=== PATIENT | female | born 1985 | race Caucasian/White ===

== ENCOUNTER 2022-02-04 10:20 | Inpatient (IN) ==
[2022-02-04] MEDS ORDERED: OXYTOCIN 30 UNITS/500 ML BAG IV PRN ×2 (12:04→12:06)
--- NOTE | 2022-02-04 12:10 | History & Physical Report ---
Date of Service February 04, 2022 Assessment & Plan (1) 39 weeks gestation of : Plan: Admit, routine labs, start oxytocin for augmentation Epidural if patient requests Anticipate spontaneous vaginal delivery (2) Rupture of membranes with clear amniotic fluid: Plan: Prelabor rupture of membranes, will start oxytocin for augmentation (3) Macrosomia affecting management of mother in third trimester: Plan: Discussed [facility] results with patient yesterday, [facility]. Again patient was counseled with at the bedside about estimated weight of [id number] g which falls into the category of 5000 g and can offer section. However discussed with patient that her ultrasound is not always accurate, and it may be reasonable to also offer vaginal delivery, as patient desires a vaginal delivery if possible. There is increased risk with maternal and morbidity for macrosomia including infection, hemorrhage, injury and possible if the shoulder dystocia occurs. It is very hard to predict her shoulder dystocia but literature suggests infants that way over 5 kg have a 15% risk of a shoulder dystocia with the remaining deliveries being successful. Even with a delivery not all injuries are avoided. However in cases of macrosomia prolonged first and second stage of labor is more likely to occur, and if this happens patient is agreeable to proceed with a delivery. Would avoid a operative vaginal delivery for increased risk of shoulder dystocia. Counseling was performed with the patient and her significant other and they desire to proceed with attempted vaginal delivery at this time including the benefits, risks and alternatives We will proceed with augmentation of labor at this time. Per ACOG CO #216 The following recommendations are based on good and consistent scientific evid ence (Level A): * The prediction of weight is imprecise by ultrasonography or clinical measurement. For suspected macrosomia, the accuracy of estimated weight using ultrasound biometry is no better than that obtained with abdominal palpation. The following recommendations are based primarily on consensus and expert opinion (Level C): * Although the prediction of macrosomia is imprecise, scheduled may be beneficial for newborns with suspected macrosomia who have an estimated weight of at least 5,000 g in women without diabetes and an estimated weight of at least 4,500 g in women with diabetes. (4) Hypothyroidism: Plan: Continue Synthroid as prescribed (5) AMA (advanced maternal age) multigravida 35+: History of Present Illness Chief Complaint: Loss of fluid, ROM positive in clinic Primary Care Provider: NO PCP Patient is a 36-year-old -0-2-1 at 39 weeks and 2 days who presents from clinic for leaking of fluid approximately at 7:30 PM last night, and was found to be ROM positive in clinic. She has irregular contractions, denies any vaginal bleeding. Notes good movement. Denies any headache, blurry vision, right upper quadrant or epigastric pain. Otherwise feeling well. Issues this include hypothyroidism in which she is taking 100 mcg of Synthroid daily, advanced maternal age and suspected macrosomia. US 02/03/2022: FINDINGS General : Paulino Presentation: Vertex heart rate: 124 bpm Amniotic Fluid: Normal MORALES: 17.8 cm which is between the 50th and 95th percentiles for this stage of . Placenta: Anterior, no previa Biometry The previous outside study estimated the date of delivery of 02/09/2022. Uti lizing that date, current gestational age is 39 weeks 1 days. Biparietal diameter: 9.6 cm, 39w 1d Head circumference: 35.7 cm, which is out range Abdominal circumference: 38.1 cm, 42w 0d Femur length: 8.0 cm, 41w 1d Humeral length: 7.2 cm, which is out of range HC/AC: 0.94, within normal limits EFW: 4376 g +/- 639 g which is at the 98th percentile. Allergies Allergy/AdvReac Type Severity Reaction Status Date / Time No Known Drug Allergies Allergy Verified 01/29/22 09:43 Home Medications Medication Instructions Recorded Confirmed Type cetirizine 10 mg tablet 10 mg PO HS 01/29/22 02/04/22 History cholecalciferol (vitamin D3) 50 100 mcg PO QAM 01/29/22 02/04/22 History mcg (2,000 unit) tablet (Vitamin D3) levothyroxine 100 mcg tablet 100 mcg PO QAM 01/29/22 02/04/22 History vitamins no.144-folic 4 tab PO QAM 01/29/22 02/04/22 History acid 400 mcg chewable tablet () Patient History Medical History Cardiac murmur 2010, f/u with provider in [place], "no concerns right now" History of COVID-19 12/29/21, home test, sore throat, congestion, headache, fatigue, not hospitalized>resolved. Hypothyroidism Pt stated "she is sensitive to certain types of Synthroid, has been only taking the specific type in her current med list" Surgical History Hx of wisdom tooth extraction Family History Grandmother (Paternal) Diabetes Mother Hypothyroidism Social History Smoking Status: Never smoker Second Hand Exposure: No; Hx Alcohol Use: No Hx Substance Use: No Preferred Language: Portuguese Communication Ability: Effective Cytotechnologist Required: No Beliefs That Will Affect Care: None marital status: Current Living Situation: Spouse and Family Current Living Situation Comment: Daughter and . 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 Review of Systems All systems reviewed & are unremarkable except as noted in HPI & below Physical Exam Constitutional: WD/WN, vitals as above Respiratory: normal respiratory effort, lungs clear to auscultation Cardiovascular: RRR, no murmur, no edema Gastrointestinal (Abdomen): normal bowel sounds, soft, nontender, no hepatosplenomegaly Genitourinary: no vaginal lesions, no adnexal mass Neymar: Vertex, EFW 4500 g Sterile speculum exam: Negative Valsalva, negative pooling, AmniSure obtained which was positive Cervix: 1.5/50/-3 soft in the anterior, sutures felt Results & Data ([facility]) Vital Signs (Past 12 Hours) Vital Signs Pulse BP 02/04/22 11:12 85 118/64 Monitoring External Monitor heart tracing: Baseline 1 30-1 35, moderate variability, positive accelerations, variable decelerations Tocodynamometer Tocometer: Irregular contractions
[2022-02-04 12:42] LABS: Hematocrit (blood only) 36.4 % (34.1-44.9); Hemoglobin 12.3 g/dl (12.0-16.0); Mean Corpuscular Hemoglobin 30.5 pg (25.0-34.0); Mean Corpuscular Hgb Conc 33.8 g/dL (32.0-36.0); Mean Corpuscular Volume 90.3 fL (80.0-100.0); Mean Platelet Volume 9.7 fL (9.4-12.3); Platelet Count 241 K/uL (130-400); RDW Coefficient of Variation 13.6 % (11.5-14.5); RDW Standard Deviation 44.8 fL (36.4-46.3); Red Blood Count 4.03 M/uL (3.93-5.22); White Blood Count 10.15 K/ul (4.8-10.8)
[2022-02-04] MEDS: LACTATED RINGER'S 1,000 ML IV PRN ×3 (12:48→21:20)
--- NOTE | 2022-02-04 16:55 | Labor Progress Brief Note ---
Date of Service February 04, 2022 Subjective Called by nursing staff as they felt that bulging bag may be present and unable to feel the cervix Patient is uncomfortable with contractions and is tearful No other complaints at this time Assessment & Plan (1) 39 weeks gestation of : Plan: Continue oxytocin for augmentation Epidural if patient requests Anticipate spontaneous vaginal delivery (2) Rupture of membranes with clear amniotic fluid: Plan: Prelabor rupture of membranes, will start oxytocin for augmentation (3) Macrosomia affecting management of mother in third trimester: Plan: Discussed ultrasound results with patient yesterday, [facility] for [facility]. Again patient was counseled with at the bedside about estimated weight of [id number] g which falls into the category of 5000 g and can offer section. However discussed with patient that her ultrasound is not always accurate, and it may be reasonable to also offer vaginal delivery, as patient desires a vaginal delivery if possible. There is increased risk with maternal and morbidity for macrosomia including infection, hemorrhage, injury and possible if the shoulder dystocia occurs. It is very hard to predict her shoulder dystocia but literature suggests infants that way over 5 kg have a 15% risk of a shoulder dystocia with the remaining deliveries being successful. Even with a delivery not all injuries are avoided. However in cases of macrosomia prolonged first and second stage of labor is more likely to occur, and if this happens patient is agreeable to proceed with a delivery. Would avoid a operative vaginal delivery for increased risk of shoulder dystocia. Counseling was performed with the patient and her significant other and they desire to proceed with attempted vaginal delivery at this time including the benefits, risks and alternatives We will proceed with augmentation of labor at this time. Per ACOG CO #216 The following recommendations are based on good and consistent scientific evidence (Level A): * The prediction of weight is imprecise by ultrasonography or clinical measurement. For suspected macrosomia, the accuracy of estimated weight using ultrasound biometry is no better than that obtained with abdominal palpation. The following recommendations are based primarily on consensus and expert opinion (Level C): * Although the prediction of macrosomia is imprecise, scheduled may be beneficial for newborns with suspected macrosomia who have an estimated weight of at least 5,000 g in women without diabetes and an estimated weight of at least 4,500 g in women with diabetes. (4) Hypothyroidism: Plan: Continue Synthroid as prescribed (5) AMA (advanced maternal age) multigravida 35+: Admission and Anticipated Discharge Date Admission Date: February 04, 2022 Physical Exam Genitourinary: Heart tracing: Baseline 130, moderate variability, severe accelerations, variable decelerations Number: Contractions every 2 to 3 minutes, oxytocin currently running Cervix: 2/50/-3 Results & Data ([facility]) Vital Signs (Past 12 Hours) Vital Signs Temp Pulse Resp BP 02/04/22 16:00 78 119/67 02/04/22 15:11 76 108/67 02/04/22 15:09 76 88/54 L 02/04/22 15:08 76 86/52 L 02/04/22 15:07 76 87/52 L 02/04/22 15:06 36.7 C 18 02/04/22 14:20 109 H 20 117/87 02/04/22 12:57 36.7 C 83 18 114/67 02/04/22 11:12 85 118/64 02/04/22 11:11 36.6 C 18
[2022-02-04] MEDS ORDERED: ePHEDrine sulfate 50 MG/ML AMP ONE (17:02)
[2022-02-04] MEDS ORDERED: fentaNYL 2MCG/ML ROPIVACAINE 1.25MG/ML 100 ML BAG EPI ONE (17:03)
[2022-02-04] MEDS ORDERED: fentaNYL citrate 100 MCG/2 ML VIAL ONE (17:03)
[2022-02-04] MEDS ORDERED: SODIUM CHLORIDE 0.9% INJ 10 ML VIAL ONE (17:03)
[2022-02-04] MEDS ORDERED: BUPIVACAINE 0.25% 30 ML VIAL ONE (17:03)
[2022-02-04] MEDS ORDERED: LIDOCAINE 2%/EPINEPHRINE 1:200,000 20 ML SDV ONE (17:03)
[2022-02-04] MEDS ORDERED: diphenhydrAMINE 50 MG/ML VIAL IV PRN (17:09)
[2022-02-04] MEDS ORDERED: NALBUPHINE HCL INJ 10 MG/ML AMP IV PRN (17:09)
[2022-02-04] MEDS ORDERED: fentaNYL 2MCG/ML ROPIVACAINE 1.25MG/ML 100 ML BAG EPI PRN (17:09)
[2022-02-04] MEDS ORDERED: NALOXONE HCL 1 MG in SODIUM CHLORIDE 0.9% 1000ML 1,000 ML IV PRN (17:09)
[2022-02-04] MEDS ORDERED: NALOXONE HCL 0.4 MG/1 ML VIAL/CARP IV PRN (17:09)
[2022-02-04] MEDS ORDERED: ePHEDrine sulfate 50 MG/ML AMP IV PRN (17:09)
[2022-02-04] MEDS ORDERED: ONDANSETRON INJ 2 MG/ML 2 ML VIAL IV PRN (17:09)
--- NOTE | 2022-02-04 17:09 | Anesthesiology Consultation ---
Date of Service February 04, 2022 Assessment & Plan ASA ASA2 Proposed Anesthesia Anesthesia Type: CSE Risk / Benefits Reviewed With: PT / POA / Parent / Guardian, Accepts Plan and Informed Consent Obtained History Height/Weight Height: 5 ft 5 in Weight: 78.471 kg Allergies Allergy/AdvReac Type Severity Reaction Status Date / Time No Known Drug Allergies Allergy Verified 01/29/22 09:43 Medications Home Medications Medication Instructions Recorded Confirmed Last Taken cetirizine 10 mg tablet 10 mg PO HS 01/29/22 02/04/22 02/02/22 22:00 cholecalciferol (vitamin D3) 50 100 mcg PO QAM 01/29/22 02/04/22 02/03/22 18:30 mcg (2,000 unit) tablet (Vitamin D3) levothyroxine 100 mcg tablet 100 mcg PO QAM 01/29/22 02/04/22 02/04/22 06:15 vitamins no.144-folic 4 tab PO QAM 01/29/22 02/04/22 02/03/22 18:30 acid 400 mcg chewable tablet () Active Medications Generic Name Dose Route Start Last Admin Trade Name Freq PRN Reason Stop Dose Admin Lactated Ringer's 1,000 mls @ 125 mls/hr 02/04/22 12:04 02/04/22 17:52 Lr IV 02/06/22 12:03 125 mls/hr .Q8H PRN Infusion L&D Protocol Protocol Oxytocin 30 units in 500 mls @ 8 mls/hr 02/04/22 12:06 02/04/22 16:35 Pitocin IV 02/06/22 12:05 0.48 units/hr .Q24H PRN 8 mls/hr Labor Induction/Augmentation Titration Protocol 0.48 UNITS/HR Past Medical History Medical History Cardiac murmur 2009, f/u with provider in [place], "no concerns right now" History of COVID-19 12/29/21, home test, sore throat, congestion, headache, fatigue, not hospitalized>resolved. Hypothyroidism Pt stated "she is sensitive to certain types of Synthroid, has been only taking the specific type in her current med list" Exercise / Class Metabolic Activity II 4-5 Yardwork/Stairs/Walk up hill Past Family History Family History Grandmother (Paternal) Diabetes Mother Hypothyroidism Past Surgical History Surgical History Hx of wisdom tooth extraction Past Anesthesia History No Hx of Anesthesia Complications and No Family Hx of Anesthesia Complications History of PONV No Hx of PONV and No Hx of Motion Sickness Social History Smoking Status: Never smoker Hx Alcohol Use: No Alcohol type: beer alcohol intake frequency: holidays/special occasions only Hx Substance Use: No substance use type: does not use Review of Systems denies fever/cough/ colds/ chest pain/ SOB/ ASLMA denies SALMA Physical Exam Vital Signs Last Vital Signs Temp 36.7 C 02/04/22 15:06 Pulse 67 02/04/22 17:56 Resp 18 02/04/22 15:06 BP 109/69 02/04/22 17:56 Pulse Ox 96 02/04/22 17:56 ENMT Mouth: no TMJ abnormality and no dentition abnormality Thyromental Distance: > or= 3.5 Finger Breadths Mallampati Class: II Neck neck extension not limited Respiratory normal respiratory effort; no respiratory distress Auscultation: lungs clear to auscultation bilaterally Cardiovascular Rate/Rhythm: regular rate and regular rhythm Neurologic moves all extremities Psychiatric Orientation: alert and oriented x 3 Testing Laboratory Results 02/04/22 12:18 Blood Type O Positive 02/04/22 12:18 Antibody Screen NEGATIVE 02/04/22 12:18
--- NOTE | 2022-02-04 18:48 | Labor Progress Brief Note ---
Date of Service February 04, 2022 Subjective Patient comfortable on epidural at this time, no other complaint Assessment & Plan (1) 39 weeks gestation of : Plan: Continue oxytocin for augmentation Anticipate spontaneous vaginal delivery (2) Rupture of membranes with clear amniotic fluid: Plan: Prelabor rupture of membranes, will start oxytocin for augmentation (3) Macrosomia affecting management of mother in third trimester: Plan: Discussed [facility] results with patient yesterday, [facility]. Again patient was counseled with at the bedside about estimated weight of [id number] g which falls into the category of 5000 g and can offer section. However discussed with patient that her ultrasound is not always accurate, and it may be reasonable to also offer vaginal delivery, as patient desires a vaginal delivery if possible. There is increased risk with maternal and morbidity for macrosomia including infection, hemorrhage, injury and possible if the shoulder dystocia occurs. It is very hard to predict her shoulder dystocia but literature suggests infants that way over 5 kg have a 15% risk of a shoulder dystocia with the remaining deliveries being successful. Even with a delivery not all injuries are avoided. However in cases of macrosomia prolonged first and second stage of labor is more likely to occur, and if this happens patient is agreeable to proceed with a delivery. Would avoid a operative vaginal delivery for increased risk of shoulder dystocia. Counseling was performed with the patient and her significant other and they desire to proceed with attempted vaginal delivery at this time including the benefits, risks and alternatives We will proceed with augmentation of labor at this time. Per ACOG CO #216 The following recommendations are based on good and consistent scientific evidence (Level A): * The prediction of weight is imprecise by ultrasonography or clinical measurement. For suspected macrosomia, the accuracy of estimated weight using ultrasound biometry is no better than that obtained with abdominal palpation. The following recommendations are based primarily on consensus and expert opinion (Level C): * Although the prediction of macrosomia is imprecise, scheduled may be beneficial for newborns with suspected macrosomia who have an estimated weight of at least 5,000 g in women without diabetes and an estimated weight of at least 4,500 g in women with diabetes. (4) Hypothyroidism: Plan: Continue Synthroid as prescribed (5) AMA (advanced maternal age) multigravida 35+: Admission and Anticipated Discharge Date Admission Date: February 04, 2022 Physical Exam Physical Exam: heart tracing: Baseline 120, moderate variability, positive accelerations, no decelerations, category 1 tracing Tocometer: Contractions every 2 minutes Pitocin currently running Cervix: 3/60/-2, bulging bag, AROM performed with clear fluid, IUPC was placed for adequate augmentation of Pitocin. No cord felt. No complications Results & Data ([facility]) Vital Signs (Past 12 Hours) Vital Signs Temp Pulse Resp BP Pulse Ox 02/04/22 18:41 86 108/64 97 02/04/22 18:36 67 97 02/04/22 18:31 88 97 02/04/22 18:26 72 97 02/04/22 18:23 75 100/67 02/04/22 18:21 71 98 02/04/22 18:17 82 104/68 02/04/22 18:16 73 95 02/04/22 18:12 74 111/67 02/04/22 18:11 61 97 02/04/22 18:09 63 112/69 02/04/22 18:06 64 97 02/04/22 18:03 70 112/63 02/04/22 18:01 36.7 C 67 18 98 02/04/22 17:59 65 94 02/04/22 17:56 67 109/69 96 02/04/22 17:54 58 L 108/68 02/04/22 17:52 63 111/75 02/04/22 17:51 72 95 02/04/22 17:50 65 112/73 02/04/22 17:48 78 109/74 02/04/22 17:46 74 99 02/04/22 17:41 73 99 02/04/22 17:36 80 97 02/04/22 17:31 69 100 02/04/22 17:30 64 112/74 02/04/22 16:00 78 119/67 02/04/22 15:11 76 108/67 02/04/22 15:09 76 88/54 L 02/04/22 15:08 76 86/52 L 02/04/22 15:07 76 87/52 L 02/04/22 15:06 36.7 C 18 02/04/22 14:20 109 H 20 117/87 02/04/22 12:57 36.7 C 83 18 114/67 02/04/22 11:12 85 118/64 02/04/22 11:11 36.6 C 18
[2022-02-04] MEDS: CETIRIZINE HCL 10 MG TABLET PO SCH (21:20)
--- NOTE | 2022-02-04 21:47 | Labor Progress Brief Note ---
Date of Service February 04, 2022 Subjective Strip review Patient comfortable on epidural at this time, no other complaint per nursing Assessment & Plan (1) 39 weeks gestation of : Plan: Continue oxytocin for augmentation Anticipate spontaneous vaginal delivery (2) Rupture of membranes with clear amniotic fluid: Plan: Prelabor rupture of membranes, continue oxytocin for augmentation (3) Macrosomia affecting management of mother in third trimester: Plan: Discussed ultrasound results with patient yesterday, [facility]. Again patient was counseled with at the bedside about estimated weight of [id number] g which falls into the category of 5000 g and can offer section. However discussed with patient that her ultrasound is not always accurate, and it may be reasonable to also offer vaginal delivery, as patient desires a vaginal delivery if possible. There is increased risk with maternal and morbidity for macrosomia including infection, hemorrhage, injury and possible if the shoulder dystocia occurs. It is very hard to predict her shoulder dystocia but literature suggests infants that way over 5 kg have a 15% risk of a shoulder dystocia with the remaining deliveries being successful. Even with a delivery not all injuries are avoided. However in cases of macrosomia prolonged first and second stage of labor is more likely to occur, and if this happens patient is agreeable to proceed with a delivery. Would avoid a operative vaginal delivery for increased risk of shoulder dystocia. Counseling was performed with the patient and her significant other and they desire to proceed with attempted vaginal delivery at this time including the benefits, risks and alternatives We will proceed with augmentation of labor at this time. Per ACOG CO #216 The following recommendations are based on good and consistent scientific evidence (Level A): * The prediction of weight is imprecise by ultrasonography or clinical measurement. For suspected macrosomia, the accuracy of estimated weight using ultrasound biometry is no better than that obtained with abdominal palpation. The following recommendations are based primarily on consensus and expert opinion (Level C): * Although the prediction of macrosomia is imprecise, scheduled may be beneficial for newborns with suspected macrosomia who have an estimated weight of at least 5,000 g in women without diabetes and an estimated weight of at least 4,500 g in women with diabetes. (4) Hypothyroidism: Plan: Continue Synthroid as prescribed (5) AMA (advanced maternal age) multigravida 35+: Admission and Anticipated Discharge Date Admission Date: February 04, 2022 Physical Exam Physical Exam: heart tracing: Baseline 1 -1 30, moderate variability, variable decelerations, category 2 tracing Tocometer: Contractions every 3 minutes, oxytocin currently at 10 milliunits/h Cervix: 4/90/-2 checked by RN Results & Data ([facility]) Vital Signs (Past 12 Hours) Vital Signs Temp Pulse Resp BP Pulse Ox 02/04/22 21:42 64 109/66 02/04/22 21:41 63 96 02/04/22 21:36 73 96 02/04/22 21:35 84 94 02/04/22 21:31 72 97 02/04/22 21:28 36.8 C 18 02/04/22 21:27 69 107/58 L 02/04/22 21:26 68 97 02/04/22 21:21 69 98 02/04/22 21:16 77 96 02/04/22 21:11 67 94/50 L 96 02/04/22 21:10 70 94 02/04/22 21:06 68 95 02/04/22 21:04 70 94 02/04/22 21:01 65 95 02/04/22 20:58 70 94 02/04/22 20:56 75 92/51 L 96 02/04/22 20:51 67 96 02/04/22 20:50 64 94 02/04/22 20:46 60 95 02/04/22 20:43 60 94 02/04/22 20:42 61 93/51 L 02/04/22 20:41 65 95 02/04/22 20:36 59 L 93 02/04/22 20:34 63 94 02/04/22 20:31 63 94 02/04/22 20:26 69 102/54 L 94 02/04/22 20:21 65 95 02/04/22 20:16 63 95 02/04/22 20:15 64 93 02/04/22 20:11 62 96/54 L 97 02/04/22 20:10 66 94 02/04/22 20:06 64 93 02/04/22 20:01 62 94 02/04/22 19:56 62 98/52 L 94 02/04/22 19:55 66 94 02/04/22 19:51 75 97 02/04/22 19:46 69 95 02/04/22 19:41 70 93/54 L 95 02/04/22 19:38 64 93 02/04/22 19:36 65 96 02/04/22 19:31 62 95 02/04/22 19:26 67 106/61 96 02/04/22 19:23 65 94 02/04/22 19:21 92 H 96 02/04/22 19:16 67 97 02/04/22 19:14 64 94 02/04/22 19:12 59 L 107/62 02/04/22 19:11 70 97 02/04/22 19:07 67 93 02/04/22 19:06 64 95 02/04/22 19:01 66 97 02/04/22 19:00 36.7 C 18 02/04/22 18:56 74 101/58 L 95 02/04/22 18:54 65 94 02/04/22 18:51 81 97 02/04/22 18:46 75 96 02/04/22 18:41 86 108/64 97 02/04/22 18:36 67 97 02/04/22 18:31 88 97 02/04/22 18:26 72 97 02/04/22 18:23 75 100/67 02/04/22 18:21 71 98 02/04/22 18:17 82 104/68 02/04/22 18:16 73 95 02/04/22 18:12 74 111/67 02/04/22 18:11 61 97 02/04/22 18:09 63 112/69 02/04/22 18:06 64 97 02/04/22 18:03 70 112/63 02/04/22 18:01 36.7 C 67 18 98 02/04/22 17:59 65 94 02/04/22 17:56 67 109/69 96 02/04/22 17:54 58 L 108/68 02/04/22 17:52 63 111/75 02/04/22 17:51 72 95 02/04/22 17:50 65 112/73 02/04/22 17:48 78 109/74 02/04/22 17:46 74 99 02/04/22 17:41 73 99 02/04/22 17:36 80 97 02/04/22 17:31 69 100 02/04/22 17:30 64 112/74 02/04/22 16:00 78 119/67 02/04/22 15:11 76 108/67 02/04/22 15:09 76 88/54 L 02/04/22 15:08 76 86/52 L 02/04/22 15:07 76 87/52 L 02/04/22 15:06 36.7 C 18 02/04/22 14:20 109 H 20 117/87 02/04/22 12:57 36.7 C 83 18 114/67 02/04/22 11:12 85 118/64 02/04/22 11:11 36.6 C 18
--- NOTE | 2022-02-05 00:40 | Labor Progress Brief Note ---
Date of Service February 05, 2022 Subjective Patient comfortable with epidural at this time, pushing with nursing Assessment & Plan (1) 39 weeks gestation of : Plan: Continue oxytocin for augmentation I continued to push with patient, but she made little progress with bringing the head under the pubic symphysis, will allow patient to keep pushing with nursing staff at this time Anticipate spontaneous vaginal delivery, however if patient meets criteria for arrest of active labor we will proceed with section (2) Rupture of membranes with clear amniotic fluid: Plan: Prelabor rupture of membranes, continue oxytocin for augmentation (3) Macrosomia affecting management of mother in third trimester: Plan: Discussed ultrasound results with patient yesterday, [facility] session. Again patient was counseled with at the bedside about estimated weight of [id number] g which falls into the category of 5000 g and can offer section. However discussed with patient that her ultrasound is not always accurate, and it may be reasonable to also offer vaginal delivery, as patient desires a vaginal delivery if possible. There is increased risk with maternal and morbidity for macrosomia including infection, hemorrhage, injury and possible if the shoulder dystocia occurs. It is very hard to predict her shoulder dystocia but literature suggests infants that way over 5 kg have a 15% risk of a shoulder dystocia with the remaining deliveries being successful. Even with a delivery not all injuries are avoided. However in cases of macrosomia prolonged first and second stage of labor is more likely to occur, and if this happens patient is agreeable to proceed with a delivery. Would avoid a operative vaginal delivery for increased risk of shoulder dystocia. Counseling was performed with the patient and her significant other and they desire to proceed with attempted vaginal delivery at this time including the benefits, risks and alternatives We will proceed with augmentation of labor at this time. Per ACOG CO #216 The following recommendations are based on good and consistent scientific evidence (Level A): * The prediction of weight is imprecise by ultrasonography or clinical measurement. For suspected macrosomia, the accuracy of estimated weight using ultrasound biometry is no better than that obtained with abdominal palpation. The following recommendations are based primarily on consensus and expert opinion (Level C): * Although the prediction of macrosomia is imprecise, scheduled may be beneficial for newborns with suspected macrosomia who have an estimated weight of at least 5,000 g in women without diabetes and an estimated f etal weight of at least 4,500 g in women with diabetes. (4) Hypothyroidism: Plan: Continue Synthroid as prescribed (5) AMA (advanced maternal age) multigravida 35+: Admission and Anticipated Discharge Date Admission Date: February 04, 2022 Physical Exam Physical Exam: heart tracing: Baseline 1 10-1 15, minimal to moderate variability at times, no accelerations, early decelerations, category 2 tracing Tocometer: Contractions every 2 minutes, oxytocin at 10 milliunits/h Cervix: 10/100 0, with patient pushing she pushes to +1, OP position Results & Data ([facility]) Vital Signs (Past 12 Hours) Vital Signs Temp Pulse Resp BP Pulse Ox 02/05/22 00:33 86 94 02/05/22 00:32 82 94 02/05/22 00:27 89 118/58 L 96 02/05/22 00:26 86 92 02/05/22 00:22 96 H 97 02/05/22 00:19 95 H 90 02/05/22 00:16 108 H 98 02/05/22 00:11 88 93 02/05/22 00:06 98 H 97 02/05/22 00:01 93 H 98 02/05/22 00:00 36.8 C 20 02/04/22 23:57 85 93 02/04/22 23:56 91 H 113/63 97 02/04/22 23:51 86 98 02/04/22 23:46 81 98 02/04/22 23:42 85 114/59 L 02/04/22 23:41 83 98 02/04/22 23:36 83 98 02/04/22 23:35 90 93 02/04/22 23:31 80 98 02/04/22 23:29 84 94 02/04/22 23:27 80 116/67 02/04/22 23:26 81 95 02/04/22 23:23 89 91 02/04/22 23:21 78 98 02/04/22 23:17 90 94 02/04/22 23:16 94 H 94 02/04/22 23:12 85 116/69 02/04/22 23:11 82 99 02/04/22 23:07 84 93 07/06/22 23:06 85 96 02/04/22 23:01 85 97 02/04/22 22:56 75 97 02/04/22 22:51 80 97 02/04/22 22:46 82 98 02/04/22 22:43 71 94 02/04/22 22:41 77 103/68 97 02/04/22 22:36 84 93 02/04/22 22:31 72 97 02/04/22 22:26 78 108/70 98 02/04/22 22:25 78 93 02/04/22 22:21 75 99 02/04/22 22:18 84 93 02/04/22 22:16 73 99 02/04/22 22:12 76 94 02/04/22 22:11 79 103/64 96 02/04/22 22:06 86 96 02/04/22 22:01 76 97 02/04/22 21:57 66 107/62 02/04/22 21:56 70 98 02/04/22 21:51 64 97 02/04/22 21:46 68 96 02/04/22 21:42 64 109/66 02/04/22 21:41 63 96 02/04/22 21:36 73 96 02/04/22 21:35 84 94 02/04/22 21:31 72 97 02/04/22 21:28 36.8 C 18 02/04/22 21:27 69 107/58 L 02/04/22 21:26 68 97 02/04/22 21:21 69 98 02/04/22 21:16 77 96 02/04/22 21:11 67 94/50 L 96 02/04/22 21:10 70 94 02/04/22 21:06 68 95 02/04/22 21:04 70 94 02/04/22 21:01 65 95 02/04/22 20:58 70 94 02/04/22 20:56 75 92/51 L 96 02/04/22 20:51 67 96 02/04/22 20:50 64 94 02/04/22 20:46 60 95 02/04/22 20:43 60 94 02/04/22 20:42 61 93/51 L 02/04/22 20:41 65 95 02/04/22 20:36 59 L 93 02/04/22 20:34 63 94 02/04/22 20:31 63 94 02/04/22 20:26 69 102/54 L 94 02/04/22 20:21 65 95 02/04/22 20:16 63 95 02/04/22 20:15 64 93 02/04/22 20:11 62 96/54 L 97 02/04/22 20:10 66 94 02/04/22 20:06 64 93 02/04/22 20:01 62 94 02/04/22 19:56 62 98/52 L 94 02/04/22 19:55 66 94 02/04/22 19:51 75 97 02/04/22 19:46 69 95 02/04/22 19:41 70 93/54 L 95 02/04/22 19:38 64 93 02/04/22 19:36 65 96 02/04/22 19:31 62 95 02/04/22 19:26 67 106/61 96 02/04/22 19:23 65 94 02/04/22 19:21 92 H 96 02/04/22 19:16 67 97 02/04/22 19:14 64 94 02/04/22 19:12 59 L 107/62 02/04/22 19:11 70 97 02/04/22 19:07 67 93 02/04/22 19:06 64 95 02/04/22 19:01 66 97 02/04/22 19:00 36.7 C 18 02/04/22 18:56 74 101/58 L 95 02/04/22 18:54 65 94 02/04/22 18:51 81 97 02/04/22 18:46 75 96 02/04/22 18:41 86 108/64 97 02/04/22 18:36 67 97 02/04/22 18:31 88 97 02/04/22 18:26 72 97 02/04/22 18:23 75 100/67 02/04/22 18:21 71 98 02/04/22 18:17 82 104/68 02/04/22 18:16 73 95 02/04/22 18:12 74 111/67 02/04/22 18:11 61 97 02/04/22 18:09 63 112/69 02/04/22 18:06 64 97 02/04/22 18:03 70 112/63 02/04/22 18:01 36.7 C 67 18 98 02/04/22 17:59 65 94 02/04/22 17:56 67 109/69 96 02/04/22 17:54 58 L 108/68 02/04/22 17:52 63 111/75 02/04/22 17:51 72 95 02/04/22 17:50 65 112/73 02/04/22 17:48 78 109/74 02/04/22 17:46 74 99 02/04/22 17:41 73 99 02/04/22 17:36 80 97 02/04/22 17:31 69 100 02/04/22 17:30 64 112/74 02/04/22 16:00 78 119/67 02/04/22 15:11 76 108/67 02/04/22 15:09 76 88/54 L 02/04/22 15:08 76 86/52 L 02/04/22 15:07 76 87/52 L 02/04/22 15:06 36.7 C 18 02/04/22 14:20 109 H 20 117/87 02/04/22 12:57 36.7 C 83 18 114/67
[2022-02-05] MEDS ORDERED: ceFAZolin 2000MG 2,000 MG/15 ML SYR IV STA (02:41)
[2022-02-05] MEDS ORDERED: AZITHROMYCIN 500 MG in DEXTROSE 5% 250 ML IV STA (02:41)
--- NOTE | 2022-02-05 02:46 | Labor Progress Brief Note ---
Date of Service February 05, 2022 Subjective Patient comfortable with epidural at this time, been pushing for 2 1/2 hours. Assessment & Plan (1) 39 weeks gestation of : Plan: No change on exam after 2 1/2 hrs of pushing Desires to proceed with C section Patient counselled (see op report for counselling session) (2) Rupture of membranes with clear amniotic fluid: Plan: Prelabor rupture of membranes, (3) Macrosomia affecting management of mother in third trimester: Plan: D[facility]ed [facility] results with patient yesterday, [facility]. Again patient was counseled with at the bedside about estimated weight of [id number] g which falls into the category of 5000 g and can offer section. However discussed with patient that her ultrasound is not always accurate, and it may be reasonable to also offer vaginal delivery, as patient desires a vaginal delivery if possible. There is increased risk with maternal and morbidity for macrosomia including infection, hemorrhage, injury and possible if the shoulder dystocia occurs. It is very hard to predict her shoulder dystocia but literature suggests infants that way over 5 kg have a 15% risk of a shoulder dystocia with the remaining deliveries being successful. Even with a delivery not all injuries are avoided. However in cases of macrosomia prolonged first and second stage of labor is more likely to occur, and if this happens patient is agreeable to proceed with a delivery. Would avoid a operative vaginal delivery for increased risk of shoulder dystocia. Counseling was performed with the patient and her significant other and they desire to proceed with attempted vaginal delivery at this time including the benefits, risks and alternatives We will proceed with augmentation of labor at this time. Per ACOG CO #216 The following recommendations are based on good and consistent scientific evidence (Level A): * The prediction of weight is imprecise by ultrasonography or clinical measurement. For suspected macrosomia, the accuracy of estimated weight using ultrasound biometry is no better than that obtained with abdominal palpation. The following recommendations are based primarily on consensus and expert opinion (Level C): * Although the prediction of macrosomia is imprecise, scheduled may be beneficial for newborns with suspected macrosomia who have an estimated weight of at least 5,000 g in women without diabetes and an estimated weight of at least 4,500 g in women with diabetes. (4) Hypothyroidism: Plan: Continue Synthroid as prescribed (5) AMA (advanced maternal age) multigravida 35+: Admission and Anticipated Discharge Date Admission Date: February 04, 2022 Physical Exam Physical Exam: FHT: baseline 145, min-mod variability, no accels, late decelerations last several min Toxo: q3 min, pit now turned off Cx: 10/100/0 with caput to +2. no change to exam after 2 1/2 hrs of pushing Results & Data ([facility]) Vital Signs (Past 12 Hours) Vital Signs Temp Pulse Resp BP Pulse Ox 02/05/22 02:38 101 H 100 02/05/22 02:33 100 H 100 02/05/22 02:28 84 100 02/05/22 02:26 88 109/66 02/05/22 02:23 84 100 02/05/22 02:18 94 H 100 02/05/22 02:13 93 H 100 02/05/22 02:08 88 100 02/05/22 02:03 92 H 100 02/05/22 01:59 105 H 89 L 02/05/22 01:58 93 H 100 02/05/22 01:56 89 117/66 02/05/22 01:53 89 100 02/05/22 01:48 93 H 100 02/05/22 01:43 110 H 100 02/05/22 01:42 82 111/56 L 02/05/22 01:38 99 H 100 02/05/22 01:33 86 100 02/05/22 01:28 98 H 100 02/05/22 01:27 97 H 115/75 02/05/22 01:23 115 H 100 02/05/22 01:18 111 H 100 02/05/22 01:13 86 100 02/05/22 01:11 81 95/51 L 02/05/22 01:08 88 100 02/05/22 01:03 80 100 02/05/22 00:58 104 H 100 02/05/22 00:57 77 101/50 L 02/05/22 00:50 3 L 77 L 02/05/22 00:47 89 92 02/05/22 00:44 101 H 94 02/05/22 00:42 92 H 116/57 L 95 02/05/22 00:39 99 H 94 02/05/22 00:37 86 94 02/05/22 00:33 86 94 02/05/22 00:32 82 94 02/05/22 00:27 89 118/58 L 96 02/05/22 00:26 86 92 02/05/22 00:22 96 H 97 02/05/22 00:19 95 H 90 02/05/22 00:16 108 H 98 02/05/22 00:11 88 93 02/05/22 00:06 98 H 97 02/05/22 00:01 93 H 98 02/05/22 00:00 36.8 C 20 02/04/22 23:57 85 93 02/04/22 23:56 91 H 113/63 97 02/04/22 23:51 86 98 02/04/22 23:46 81 98 02/04/22 23:42 85 114/59 L 02/04/22 23:41 83 98 02/04/22 23:36 83 98 02/04/22 23:35 90 93 02/04/22 23:31 80 98 02/04/22 23:29 84 94 02/04/22 23:27 80 116/67 02/04/22 23:26 81 95 02/04/22 23:23 89 91 02/04/22 23:21 78 98 02/04/22 23:17 90 94 02/04/22 23:16 94 H 94 02/04/22 23:12 85 116/69 02/04/22 23:11 82 99 02/04/22 23:07 84 93 02/04/22 23:06 85 96 02/04/22 23:01 85 97 02/04/22 22:56 75 97 02/04/22 22:51 80 97 02/04/22 22:46 82 98 02/04/22 22:43 71 94 02/04/22 22:41 77 103/68 97 02/04/22 22:36 84 93 02/04/22 22:31 72 97 02/04/22 22:26 78 108/70 98 02/04/22 22:25 78 93 02/04/22 22:21 75 99 02/04/22 22:18 84 93 02/04/22 22:16 73 99 02/04/22 22:12 76 94 02/04/22 22:11 79 103/64 96 02/04/22 22:06 86 96 02/04/22 22:01 76 97 02/04/22 21:57 66 107/62 02/04/22 21:56 70 98 02/04/22 21:51 64 97 02/04/22 21:46 68 96 02/04/22 21:42 64 109/66 02/04/22 21:41 63 96 02/04/22 21:36 73 96 02/04/22 21:35 84 94 02/04/22 21:31 72 97 02/04/22 21:28 36.8 C 18 02/04/22 21:27 69 107/58 L 02/04/22 21:26 68 97 02/04/22 21:21 69 98 02/04/22 21:16 77 96 02/04/22 21:11 67 94/50 L 96 02/04/22 21:10 70 94 02/04/22 21:06 68 95 02/04/22 21:04 70 94 02/04/22 21:01 65 95 02/04/22 20:58 70 94 02/04/22 20:56 75 92/51 L 96 02/04/22 20:51 67 96 02/04/22 20:50 64 94 02/04/22 20:46 60 95 02/04/22 20:43 60 94 02/04/22 20:42 61 93/51 L 02/04/22 20:41 65 95 02/04/22 20:36 59 L 93 02/04/22 20:34 63 94 02/04/22 20:31 63 94 02/04/22 20:26 69 102/54 L 94 02/04/22 20:21 65 95 02/04/22 20:16 63 95 02/04/22 20:15 64 93 02/04/22 20:11 62 96/54 L 97 02/04/22 20:10 66 94 02/04/22 20:06 64 93 02/04/22 20:01 62 94 02/04/22 19:56 62 98/52 L 94 02/04/22 19:55 66 94 02/04/22 19:51 75 97 02/04/22 19:46 69 95 02/04/22 19:41 70 93/54 L 95 02/04/22 19:38 64 93 02/04/22 19:36 65 96 02/04/22 19:31 62 95 02/04/22 19:26 67 106/61 96 02/04/22 19:23 65 94 02/04/22 19:21 92 H 96 02/04/22 19:16 67 97 02/04/22 19:14 64 94 02/04/22 19:12 59 L 107/62 02/04/22 19:11 70 97 02/04/22 19:07 67 93 02/04/22 19:06 64 95 02/04/22 19:01 66 97 02/04/22 19:00 36.7 C 18 02/04/22 18:56 74 101/58 L 95 02/04/22 18:54 65 94 02/04/22 18:51 81 97 02/04/22 18:46 75 96 02/04/22 18:41 86 108/64 97 02/04/22 18:36 67 97 02/04/22 18:31 88 97 02/04/22 18:26 72 97 02/04/22 18:23 75 100/67 02/04/22 18:21 71 98 02/04/22 18:17 82 104/68 02/04/22 18:16 73 95 02/04/22 18:12 74 111/67 02/04/22 18:11 61 97 02/04/22 18:09 63 112/69 02/04/22 18:06 64 97 02/04/22 18:03 70 112/63 02/04/22 18:01 36.7 C 67 18 98 02/04/22 17:59 65 94 02/04/22 17:56 67 109/69 96 02/04/22 17:54 58 L 108/68 02/04/22 17:52 63 111/75 02/04/22 17:51 72 95 02/04/22 17:50 65 112/73 02/04/22 17:48 78 109/74 02/04/22 17:46 74 99 02/04/22 17:41 73 99 02/04/22 17:36 80 97 02/04/22 17:31 69 100 02/04/22 17:30 64 112/74 02/04/22 16:00 78 119/67 02/04/22 15:11 76 108/67 02/04/22 15:09 76 88/54 L 02/04/22 15:08 76 86/52 L 02/04/22 15:07 76 87/52 L 02/04/22 15:06 36.7 C 18
--- NOTE | 2022-02-05 02:48 | Discharge Summary ---
Date of Service February 05, 2022 Admission HPI Per Admitting Provider Patient is a 36-year-old -0-2-1 at 39 weeks and 2 days who presents from clinic for leaking of fluid approximately at 7:30 PM last night, and was found to be ROM positive in clinic. She has irregular contractions, denies any vaginal bleeding. Notes good movement. Denies any headache, blurry vision, right upper quadrant or epigastric pain. Otherwise feeling well. Issues this include hypothyroidism in which she is taking 100 mcg of Synthroid daily, advanced maternal age and suspected macrosomia. US 02/03/2022: FINDINGS General : Paulino Presentation: Vertex heart rate: 124 bpm Amniotic Fluid: Normal MORALES: 17.8 cm which is between the 50th and 95th percentiles for this stage of . Placenta: Anterior, no previa Biometry The previous outside study estimated the date of delivery of 02/09/2022. Utilizing that date, current gestational age is 39 weeks 1 days. Biparietal diameter: 9.6 cm, 39w 1d Head circumference: 35.7 cm, which is out range Abdominal circumference: 38.1 cm, 42w 0d Femur length: 8.0 cm, 41w 1d Humeral length: 7.2 cm, which is out of range HC/AC: 0.94, within normal limits EFW: 4376 g +/- 639 g which is at the 98th percentile. Admission Exam (Per Admitting) Constitutional WD/WN, vitals as above Respiratory normal respiratory effort, lungs clear to auscultation Cardiovascular RRR, no murmur, no edema Gastrointestinal (Abdomen) normal bowel sounds, soft, nontender, no hepatosplenomegaly Genitourinary no vaginal lesions, no adnexal mass Discharge Data Consultations 02/04/22 12:04 Consult Anesthesiology Stat Procedures Performed Operation Date: 02/05/22 03:00 Primary lower transverse Caesarean section Hospital Course (1) 39 weeks gestation of : No change on exam after 2 1/2 hrs of pushing Desires to proceed with C section Patient counselled (see op report for counselling session) (2) Rupture of membranes with clear amniotic fluid: Prelabor rupture of membranes, (3) Macrosomia affecting management of mother in third trimester: Discussed ultrasound results with patient yesterday, please see [facility] chart for additional counseling session. Again patient was counseled with at the bedside about estimated weight of [id number] g which falls into the category of 5000 g and can offer section. However discussed with patient that her ultrasound is not always accurate, and it may be reasonable to also offer vaginal delivery, as patient desires a vaginal delivery if possible. There is increased risk with maternal and morbidity for macrosomia including infection, hemorrhage, injury and possible if the shoulder dystocia occurs. It is very hard to predict her shoulder d ystocia but literature suggests infants that way over 5 kg have a 15% risk of a shoulder dystocia with the remaining deliveries being successful. Even with a delivery not all injuries are avoided. However in cases of macrosomia prolonged first and second stage of labor is more likely to occur, and if this happens patient is agreeable to proceed with a delivery. Would avoid a operative vaginal delivery for increased risk of shoulder dystocia. Counseling was performed with the patient and her significant other and they desire to proceed with attempted vaginal delivery at this time including the benefits, risks and alternatives We will proceed with augmentation of labor at this time. Per ACOG CO #216 The following recommendations are based on good and consistent scientific evidence (Level A): * The prediction of weight is imprecise by ultrasonography or clinical measurement. For suspected macrosomia, the accuracy of estimated weight using ultrasound biometry is no better than that obtained with abdominal palpation. The following recommendations are based primarily on consensus and expert o virgie (Level C): * Although the prediction of macrosomia is imprecise, scheduled may be beneficial for newborns with suspected macrosomia who have an estimated weight of at least 5,000 g in women without diabetes and an estimated weight of at least 4,500 g in women with diabetes. (4) Hypothyroidism: Continue Synthroid as prescribed (5) AMA (advanced maternal age) multigravida 35+: (6) Normal course: Patient doing well on postop day 1, ambulating, eating and drinking well. Continue routine care. Discharge home later today if patient desires otherwise will be home tomorrow
[2022-02-05] MEDS ORDERED: OXYTOCIN 10 UNITS/ML 10ML VIAL ONE (03:03)
[2022-02-05] MEDS ORDERED: LIDOCAINE 2%/EPINEPHRINE 1:200,000 20 ML SDV ONE (03:03)
[2022-02-05] MEDS ORDERED: fentaNYL citrate 100 MCG/2 ML VIAL ONE (03:06)
[2022-02-05] MEDS ORDERED: ONDANSETRON INJ 2 MG/ML 2 ML VIAL IV PRN ×2 (03:14→21:14)
[2022-02-05] MEDS ORDERED: NALOXONE HCL 1 MG in SODIUM CHLORIDE 0.9% 1000ML 1,000 ML IV PRN (03:14)
[2022-02-05] MEDS ORDERED: NALOXONE HCL 0.08 MG in SYRINGE 1.8 ML IV PRN (03:14)
[2022-02-05] MEDS ORDERED: NALBUPHINE HCL INJ 10 MG/ML AMP IV PRN (03:14)
[2022-02-05] MEDS ORDERED: diphenhydrAMINE 50 MG/ML VIAL IV PRN ×2 (03:14→21:14)
[2022-02-05] MEDS ORDERED: MoRPHine SULFATE PF 1 MG/ML 10 ML AMP/VIAL EPI ONE (03:14)
[2022-02-05] MEDS ORDERED: LACTATED RINGER'S 500 ML IV PRN (03:14)
[2022-02-05] MEDS ORDERED: MoRPHine SULFATE 2 MG/ML CARP IV PRN (03:14)
[2022-02-05] MEDS ORDERED: NALOXONE HCL 0.4 MG/1 ML VIAL/CARP IV PRN (03:14)
[2022-02-05] MEDS ORDERED: ePHEDrine sulfate 50 MG/ML AMP IV PRN (03:14)
[2022-02-05] MEDS ORDERED: NO NARCOTICS OR SEDATIVES SCH (03:15)
[2022-02-05] MEDS ORDERED: SODIUM CHLORIDE 0.9% 1000ML 1,000 ML IV SCH (03:15)
[2022-02-05] MEDS ORDERED: DC INTRASPINAL MORPHINE SCH (03:15)
[2022-02-05] MEDS ORDERED: MoRPHine SULFATE PF 1 MG/ML 10 ML AMP/VIAL ONE (03:48)
[2022-02-05] MEDS ORDERED: CHLOROPROCAINE HCL 3% 20 ML VIAL ONE (03:48)
[2022-02-05] MEDS ORDERED: DIPHTHERIA/TETANUS/PERTUSSIS 0.5 ML SYR/VIAL IM ONE (04:18)
[2022-02-05] MEDS ORDERED: SENNA 8.6 MG TAB PO PRN (04:18)
[2022-02-05] MEDS ORDERED: MAGNESIUM HYDROXIDE SUSP 30 ML UDC PO PRN (04:18)
[2022-02-05] MEDS ORDERED: HYDROCORTISONE ACETATE 25 MG SUPP PR PRN (04:18)
[2022-02-05] MEDS ORDERED: BENZOCAINE 20% AER SPR 82.5 GM CAN EXT PRN (04:18)
--- NOTE | 2022-02-05 04:21 | Operative Report ---
Post Operative Report Pre & Post Diagnosis Preop Diagnosis: 1. 36-year-old -0-2-1 at 39 weeks and 2 days 2. Failure to descend 3. Suspected macrosomia 4. Advanced maternal age 5. Hypothyroidism 6. COVID-19 infection in third trimester 7. Prolonged rupture of membranes Postop diagnosis: Same as above and delivered Operation Date: 02/05/22 03:00 Primary low transverse delivery via Pfannenstiel incision I identified the patient and participated in the time-out.: Yes Procedure Operation Date: 02/05/22 03:00 Primary low transverse delivery via Pfannenstiel incision Surgeon Viri Ovalle MD, PhD Apartment Assistant Manager precision agriculture technician x1 Estimated Blood Loss 700 Findings Consistent with Post-Op Diagnosis Liveborn male delivered at 0350 weight pending at time of dictation, Apgars 8/9, with nuchal cord x2. Intact placenta with three-vessel cord. Cord pH not obtained. Normal-appearing uterus, normal-appearing bilateral fallopian tubes and ovaries seen at time of surgery Fluids See anesthesia record Specimens Placenta Drains Lin catheter, 50 mL Anesthesia Type Labor Epidural Complications None Disposition Accompanied Patient To Recovery: No Disposition: L&D Indications Suspected macrosomia, failure to descend after 2-1/2 hours of pushing Description of Procedure CD Delivery Note History synopsis: Patient is a 36-year-old -0-2-1 at 39 weeks and 2 days who presented for possible rupture of membranes and was found to be positive on the AmniSure. She is 1 cm dilated and started on oxytocin for augmentation. Suspected macrosomia but patient wanted an attempted vaginal delivery. She continued to make good progress throughout the day while being on oxytocin for augmentation. After patient received an epidural rupture for bag was performed and IUPC was placed. Oxytocin was continued to increase to make contractions adequate and patient was then found to be complete at 11:50 PM. She pushed with nursing and then myself. Head was noted to be 0 station with caput 2+1. She continued to push for total of 2-1/2 hours and she was rechecked with no descent of the head past 0 station, despite It being to +2. head was noted to be in the OP position as well. Patient desired to proceed with delivery is she had made no progress for 2-1/2 hours and the suspected macrosomia and increased risk of shoulder dystocia Procedure Summary: section was recommended. Risks, benefits and alternatives were discussed including but not limited to infection, bleeding that may require blood products or hysterectomy for life saving measures, injury to surrounding organs including but not limited to bowel, bladder, ureters, tubes and ovaries and/or the baby. Should injury occur it could require longer/additional surgery to repair. Patient was also counselled about risk of DVT/PE, and injury to infant during delivery. The patient stated understanding and desired to proceed. All questions were answered posed by patient. Prior to being taken to the OR, 2 grams of cefazolin IV and 500 mg of azithromycin was administered. The patient was taken to the operating room where regional anesthesia was found to be adequate. Prior to monitors being removed FHR was bpm with no decelerations. She was then prepared and draped in the usual sterile fashion in the dorsal supine position with a leftward tilt displacing the uterus. Lin was draining to gravity. SCDs were on bilateral lower extremities. A pfannenstiel skin incision was then made with the scalpel and carried through to the underlying layer of fascia. The fascia was incised in the midline and the incision extended laterally with the Lezama scissors. The superior aspect of the facial incision was then grasped with the Tristian clamps, elevated and the underlying rectus muscles dissected off bluntly. Attention was then turned to the inferior aspect of this incision which in a similar fashion was grasped, elevated with the Tristian clamps and the rectus muscle dissected off bluntly. The rectus muscles were in the midline. The peritoneum identified, grasped with the pick-ups and entered sharply with the Metzenbaum scissors. The peritoneal incision was then extended superiorly and inferiorly with good visualization of the bladder. The bladder blade was inserted and the vesicouterine peritoneum was identified, grasped with the pick-ups, and entered sharply with Metzenbaum scissors. This incision was then extended laterally and the bladder flap created digitally and the bladder blade was reinserted. The lower uterine segment was identified and incised in a transverse fashion with the scalpel. The uterine incision was then extended bluntly laterally. Artificial rupture of membranes demonstrated clear fluid. The bladder blade was removed. The fetus was in cephalic presentation. The infant's head delivered atraumatically. The anterior shoulders were delivered followed by the posterior shoulders then the remainder of the body. The 's mouth and nose were bulb suctioned. The umbilical cord was clamped times two and cut after 1 minute of delayed cord clamping. The was handed off to the awaiting pediatric staff. A male was delivered (weight pending) with APGARS of 8 at 1 minute and 9 at 5 minutes. The infant was taken to the recovery room for transition. Cord blood was obtained. The placenta was removed with removal. 30 units of oxytocin were added to IVF and allowed to run freely. The uterus was exteriorized and cleared of all clots and debris. The uterine incision was inspected and found to be without any extensions and was repaired with 0 Vicryl in a running, locked fashion. A second imbricating layer was performed. Upon inspection, the repaired hysterotomy was found to be hemostatic after 1 area was closed with 2-0 Vicryl in a [id number] fashion. The uterus was firm and returned to the abdomen. The gutters were cleared of all clots and debris. Peritoneum was closed with 2-0 Vicryl in a running fashion. The fascia was reapproximated with 0 Vicryl in a running fashion. The subcutaneous layer was closed with 2-0 Vicryl in a running fashion. The skin was closed in a subcuticular fashion with 4-0 vicryl. Dermabond and pressure bandage was applied over incision. The patient tolerated the procedure well. Sponge, lap and needle counts were correct x4. The patient was taken to the recovery room in stable condition. Attestation: My Apartment Assistant Manager was necessary throughout the procedure(s) for retraction and suction I understand that section 1842 (b)(7)(D) of the Social Security Act generally prohibits Medicare physician fee schedule payment for the services of [id number] in teaching hospitals when qualified residents are available to furnish such services. I certify that the services for which [facility] is claimed were medically necessary, and that no qualified resident was available to perform the services. I further understand that these services are subject to post-payment review by the Medicare carrier. I attest to the content of the Intraoperative Record and any orders documented therein. Any exceptions are noted below.
[2022-02-05] MEDS ORDERED: ePHEDrine sulfate 50 MG/ML SYR ONE (04:22)
[2022-02-05] MEDS ORDERED: PHENYLEPHRINE 100MCG/ML 5ML SYR ONE (04:22)
[2022-02-05] MEDS ORDERED: LACTATED RINGER'S 1,000 ML IV SCH (04:30)
--- NOTE | 2022-02-05 04:47 | Anesthesiology Progress Note ---
Date of Service February 05, 2022 Anesthesia Post Procedure Vital Signs Vital Signs: Temp Pulse Resp BP Pulse Ox 02/05/22 04:45 89 95 02/05/22 04:40 87 90/54 L 95 02/05/22 04:35 84 85/52 L 95 02/05/22 04:30 88 90/53 L 95 02/05/22 03:26 82 109/73 02/05/22 03:11 88 102/70 02/05/22 02:56 90 112/71 02/05/22 02:53 94 H 100 02/05/22 02:48 92 H 100 02/05/22 02:43 96 H 100 02/05/22 02:41 93 H 111/55 L 02/05/22 02:38 101 H 100 02/05/22 02:33 100 H 100 02/05/22 02:28 84 100 02/05/22 02:26 88 109/66 02/05/22 02:23 84 100 02/05/22 02:18 94 H 100 02/05/22 02:13 93 H 100 02/05/22 02:08 88 100 02/05/22 02:03 92 H 100 02/05/22 02:00 36.9 C 20 02/05/22 01:59 105 H 89 L 02/05/22 01:58 93 H 100 02/05/22 01:56 89 117/66 02/05/22 01:53 89 100 02/05/22 01:48 93 H 100 02/05/22 01:43 110 H 100 02/05/22 01:42 82 111/56 L 02/05/22 01:38 99 H 100 02/05/22 01:33 86 100 02/05/22 01:28 98 H 100 02/05/22 01:27 97 H 115/75 02/05/22 01:23 115 H 100 02/05/22 01:18 111 H 100 02/05/22 01:13 86 100 02/05/22 01:11 81 95/51 L 02/05/22 01:08 88 100 02/05/22 01:03 80 100 02/05/22 00:58 104 H 100 02/05/22 00:57 77 101/50 L 02/05/22 00:50 3 L 77 L 02/05/22 00:47 89 92 02/05/22 00:44 101 H 94 02/05/22 00:42 92 H 116/57 L 95 02/05/22 00:39 99 H 94 02/05/22 00:37 86 94 02/05/22 00:33 86 94 02/05/22 00:32 82 94 02/05/22 00:27 89 118/58 L 96 02/05/22 00:26 86 92 02/05/22 00:22 96 H 97 02/05/22 00:19 95 H 90 02/05/22 00:16 108 H 98 02/05/22 00:11 88 93 02/05/22 00:06 98 H 97 02/05/22 00:01 93 H 98 02/05/22 00:00 36.8 C 20 02/04/22 23:57 85 93 02/04/22 23:56 91 H 113/63 97 02/04/22 23:51 86 98 02/04/22 23:46 81 98 02/04/22 23:42 85 114/59 L 02/04/22 23:41 83 98 02/04/22 23:36 83 98 02/04/22 23:35 90 93 02/04/22 23:31 80 98 02/04/22 23:29 84 94 02/04/22 23:27 80 116/67 02/04/22 23:26 81 95 02/04/22 23:23 89 91 02/04/22 23:21 78 98 02/04/22 23:17 90 94 02/04/22 23:16 94 H 94 02/04/22 23:12 85 116/69 02/04/22 23:11 82 99 02/04/22 23:07 84 93 02/04/22 23:06 85 96 02/04/22 23:01 85 97 02/04/22 22:56 75 97 02/04/22 22:51 80 97 02/04/22 22:46 82 98 02/04/22 22:43 71 94 02/04/22 22:41 77 103/68 97 02/04/22 22:36 84 93 02/04/22 22:31 72 97 02/04/22 22:26 78 108/70 98 02/04/22 22:25 78 93 02/04/22 22:21 75 99 02/04/22 22:18 84 93 02/04/22 22:16 73 99 02/04/22 22:12 76 94 02/04/22 22:11 79 103/64 96 02/04/22 22:06 86 96 02/04/22 22:01 76 97 02/04/22 21:57 66 107/62 02/04/22 21:56 70 98 02/04/22 21:51 64 97 02/04/22 21:46 68 96 02/04/22 21:42 64 109/66 02/04/22 21:41 63 96 02/04/22 21:36 73 96 02/04/22 21:35 84 94 02/04/22 21:31 72 97 02/04/22 21:28 36.8 C 18 02/04/22 21:27 69 107/58 L 02/04/22 21:26 68 97 02/04/22 21:21 69 98 02/04/22 21:16 77 96 02/04/22 21:11 67 94/50 L 96 02/04/22 21:10 70 94 02/04/22 21:06 68 95 02/04/22 21:04 70 94 02/04/22 21:01 65 95 02/04/22 20:58 70 94 02/04/22 20:56 75 92/51 L 96 02/04/22 20:51 67 96 02/04/22 20:50 64 94 02/04/22 20:46 60 95 02/04/22 20:43 60 94 02/04/22 20:42 61 93/51 L 02/04/22 20:41 65 95 02/04/22 20:36 59 L 93 02/04/22 20:34 63 94 02/04/22 20:31 63 94 02/04/22 20:26 69 102/54 L 94 02/04/22 20:21 65 95 02/04/22 20:16 63 95 02/04/22 20:15 64 93 02/04/22 20:11 62 96/54 L 97 02/04/22 20:10 66 94 02/04/22 20:06 64 93 02/04/22 20:01 62 94 02/04/22 19:56 62 98/52 L 94 02/04/22 19:55 66 94 02/04/22 19:51 75 97 07/06/22 19:46 69 95 02/04/22 19:41 70 93/54 L 95 02/04/22 19:38 64 93 02/04/22 19:36 65 96 02/04/22 19:31 62 95 02/04/22 19:26 67 106/61 96 02/04/22 19:23 65 94 02/04/22 19:21 92 H 96 02/04/22 19:16 67 97 02/04/22 19:14 64 94 02/04/22 19:12 59 L 107/62 02/04/22 19:11 70 97 02/04/22 19:07 67 93 02/04/22 19:06 64 95 02/04/22 19:01 66 97 02/04/22 19:00 36.7 C 18 02/04/22 18:56 74 101/58 L 95 02/04/22 18:54 65 94 02/04/22 18:51 81 97 02/04/22 18:46 75 96 02/04/22 18:41 86 108/64 97 02/04/22 18:36 67 97 02/04/22 18:31 88 97 02/04/22 18:26 72 97 02/04/22 18:23 75 100/67 02/04/22 18:21 71 98 02/04/22 18:17 82 104/68 02/04/22 18:16 73 95 02/04/22 18:12 74 111/67 02/04/22 18:11 61 97 02/04/22 18:09 63 112/69 02/04/22 18:06 64 97 02/04/22 18:03 70 112/63 02/04/22 18:01 36.7 C 67 18 98 02/04/22 17:59 65 94 02/04/22 17:56 67 109/69 96 02/04/22 17:54 58 L 108/68 02/04/22 17:52 63 111/75 02/04/22 17:51 72 95 02/04/22 17:50 65 112/73 02/04/22 17:48 78 109/74 02/04/22 17:46 74 99 02/04/22 17:41 73 99 02/04/22 17:36 80 97 02/04/22 17:31 69 100 02/04/22 17:30 64 112/74 02/04/22 16:00 78 119/67 02/04/22 15:11 76 108/67 02/04/22 15:09 76 88/54 L 02/04/22 15:08 76 86/52 L 02/04/22 15:07 76 87/52 L 02/04/22 15:06 36.7 C 18 02/04/22 14:20 109 H 20 117/87 02/04/22 12:57 36.7 C 83 18 114/67 02/04/22 11:12 85 118/64 02/04/22 11:11 36.6 C 18 Pain Intensity Abdomen: Pain Intensity: 8 Transfer of Care Handoff Completed per policy Notes Mental Status: alert / awake / arousable and participated in evaluation Patient Amnestic to Procedure: Yes Nausea / Vomiting: adequately controlled Pain: adequately controlled Airway Patency, RR, SpO2: stable & adequate BP & HR: stable & adequate Hydration State: stable & adequate Anesthetic Complications: no major complications apparent and Pt Satisfied with anesthetic care
[2022-02-05] MEDS: KETOROLAC 30 MG/ML VIAL IV PRN ×3 (06:13→18:42)
[2022-02-05] MEDS ORDERED: Nursing to Pharmacy Communication SCH (06:30)
[2022-02-05] MEDS: LEVOTHYROXINE SODIUM 100 MCG TABLET PO SCH (06:40)
[2022-02-05] MEDS ORDERED: LEVOTHYROXINE SODIUM 100 MCG TABLET PO SCH (09:00)
[2022-02-05] MEDS: SIMETHICONE 80 MG CHEW PO SCH ×4 (09:27→19:52)
[2022-02-05] MEDS: FERROUS SULFATE 325 MG TAB PO SCH (09:27)
[2022-02-05] MEDS: DOCUSATE SODIUM 100 MG CAP PO SCH ×2 (09:27→19:52)
[2022-02-05] MEDS: PRENATAL VITAMIN 1 TAB PO SCH (09:27)
[2022-02-05] MEDS: CETIRIZINE HCL 10 MG TABLET PO SCH (19:53)
[2022-02-05] MEDS ORDERED: KETOROLAC 30 MG/ML VIAL IV PRN (21:14)
[2022-02-05] MEDS ORDERED: diphenhydrAMINE Capsule 25 MG CAP PO PRN (21:14)
[2022-02-05] MEDS ORDERED: PROMETHAZINE HCL 25 MG in SODIUM CHLORIDE 0.9% 50 ML IV PRN (21:14)
[2022-02-05] MEDS ORDERED: oxyCODONE/ACETAMINOPHEN 5mg/325mg TAB PO PRN (21:14)
[2022-02-05] MEDS: IBUPROFEN 600 MG TAB PO PRN (21:42)
[2022-02-06] MEDS: IBUPROFEN 600 MG TAB PO PRN ×4 (01:17→17:04)
[2022-02-06] MEDS: LEVOTHYROXINE SODIUM 100 MCG TABLET PO SCH (07:04)
[2022-02-06 07:15] LABS: Basophils # (auto) 0.03 K/uL (0-0.2); Basophils % (auto) 0.2 %; Eosinophils # (auto) 0.08 K/uL (0-0.50); Eosinophils % (auto) 0.6 %; Hematocrit (blood only) 28.9 % (34.1-44.9); Hemoglobin 9.6 g/dl (12.0-16.0); Immature Granulocytes # (auto) 0.06 K/uL (0.00-0.02); Immature Granulocytes % (auto) 0.5 %; Lymphocytes % (auto) 15.1 %; Mean Corpuscular Hemoglobin 30.6 pg (25.0-34.0); Mean Corpuscular Hgb Conc 33.2 g/dL (32.0-36.0); Mean Platelet Volume 9.6 fL (9.4-12.3); Monocytes # (auto) 0.99 K/uL (0.24-0.82); Monocytes % (auto) 7.5 %; Neutrophils % (auto) 76.1 %; Platelet Count 169 K/uL (130-400); RDW Coefficient of Variation 13.9 % (11.5-14.5); RDW Standard Deviation 46.2 fL (36.4-46.3); Red Blood Count 3.14 M/uL (3.93-5.22); White Blood Count 13.26 K/ul (4.8-10.8)
--- NOTE | 2022-02-06 07:24 | Obstetrical Progress Note ---
Date of Service February 06, 2022 Assessment & Plan (1) Normal course: Patient doing well on postop day 1, ambulating, eating and drinking well. Continue routine care. Discharge home later today if patient desires otherwise will be home tomorrow Subjective Ambulation: ambulating normally Voiding: no voiding problems Passing Gas:: Yes Diet Tolerance:: regular diet Lochia:: Small Feeding Type:: breast feeding Current Pain Level(1-10): 3 Doing well, thinking about going home later today Physical Exam Constitutional WD/WN, vitals as above Respiratory normal respiratory effort, lungs clear to auscultation Cardiovascular RRR, no murmur, no edema Gastrointestinal (Abdomen) normal bowel sounds, soft, nontender, no hepatosplenomegaly Incision, bandage in place, dry, no guarding Results & Data ([facility]) Vital Signs (Past 12 Hours) Vital Signs Temp Pulse Resp BP Pulse Ox 02/06/22 04:09 36.7 C 80 16 95/61 L 95 02/05/22 22:45 36.5 C 74 16 100/67 95 02/05/22 21:00 18 96 02/05/22 20:00 18 96 Laboratory Results H/H 9.6/28.9%
[2022-02-06] MEDS: SIMETHICONE 80 MG CHEW PO SCH ×3 (07:50→17:03)
[2022-02-06] MEDS: DOCUSATE SODIUM 100 MG CAP PO SCH (07:51)
[2022-02-06] MEDS: FERROUS SULFATE 325 MG TAB PO SCH (09:41)
[2022-02-06] MEDS: PRENATAL VITAMIN 1 TAB PO SCH (09:42)
[2022-02-06] MEDS ORDERED: bisacodyL 5 MG TABEC PO SCH (20:00)
[2022-02-07] MEDS ORDERED: bisacodyL 10 MG SUPP PR PRN (04:18)
== END 2022-02-06 18:47 | disposition home or self-care (01) | DRG 788 ==
LOC: OPB 10:20 → 4S1 10:39 → 4E2 02-05 08:00
DX: Z3A.39 39 weeks gestation of pregnancy; O99.284 Endocrine, nutritional and metabolic diseases complicating childbirth; Z86.16 Personal history of COVID-19; Z79.899 Other long term (current) drug therapy; O62.8 Other abnormalities of forces of labor; Z37.0 Single live birth; Z83.49 Family history of other endocrine, nutritional and metabolic diseases; O69.81X0 Labor and delivery complicated by cord around neck, without compression, not applicable or unspecified; Z79.890 Hormone replacement therapy; O36.63X0 Maternal care for excessive fetal growth, third trimester, not applicable or unspecified; E03.9 Hypothyroidism, unspecified